=== PATIENT | male | born 1975 | race Hispanic/Latino ===

== ENCOUNTER 2018-05-25 23:09 | Emergency (ER) | payer BC ==
[2018-05-26] MEDS ORDERED: ACETAMINOPHEN EXTRA STRENGTH 500 MG TABLET ONE (00:08)
[2018-05-26] MEDS ORDERED: ACETAMINOPHEN 325 MG TAB ONE (00:12)
== END 2018-05-26 01:50 | disposition home or self-care (01) ==
LOC: EDH 23:09
DX: S00.03XA Contusion of scalp, initial encounter (principal); E11.9 Type 2 diabetes mellitus without complications; V49.49XA Driver injured in collision with other motor vehicles in traffic accident, initial encounter; Y93.89 Activity, other specified; Y92.89 Other specified places as the place of occurrence of the external cause; Y99.8 Other external cause status
CPT/HCPCS: 94761; 99282

== ENCOUNTER 2022-08-18 21:31 | Emergency (ER) | payer OTHER, BC ==
[~2022-08-18] VITALS: Ht 182.9 cm; Wt 117.9 kg
[2022-08-18 22:48] VITALS: BP 149/85
[2022-08-18] MEDS ORDERED: METH-662 PO (23:40)
[2022-08-18] MEDS ORDERED: DICL35CA3 PO (23:40)
== END 2022-08-18 23:52 | disposition home or self-care (01) ==
LOC: EDH 21:31
DX: S80.12XA Contusion of left lower leg, initial encounter (principal); H93.12 Tinnitus, left ear; R07.9 Chest pain, unspecified; E11.9 Type 2 diabetes mellitus without complications; I10 Essential (primary) hypertension; Z98.890 Other specified postprocedural states; V49.49XA Driver injured in collision with other motor vehicles in traffic accident, initial encounter; Y93.89 Activity, other specified; Y92.89 Other specified places as the place of occurrence of the external cause; Y99.8 Other external cause status
CPT/HCPCS: 70450; 72125; 73590